=== PATIENT | female | born 1970 | race Caucasian/White ===

== ENCOUNTER 2016-07-31 13:12 | Emergency (ER) | payer OTHER ==
[~2016-07-31] VITALS: Ht 157.5 cm; Wt 78.1 kg
[~2016-07-31 13:12] MED LIST: CALC500T19 PO; HYOS0.1251 PO; LORA10TA PO; LOSA50TA PO; NEXI40CA PO; NOVOLOGSS SQ; RANI150 PO; SUCR1S PO; SYNT50TA PO; TAB-TAB PO; TRAZ50TA4 PO
[2016-07-31 13:50] VITALS: BP 157/90; PULSE 76; RESP 16; TEMP 98.8; O2SAT 99
[2016-07-31 14:35] VITALS: BP 133/69; PULSE 70; RESP 18; O2SAT 98
[2016-07-31] MEDS ORDERED: TRAZ50TA12 PO (14:46)
[2016-07-31] MEDS ORDERED: NOVOLOGP2 SQ (14:46)
[2016-07-31] MEDS ORDERED: NEXI40CA PO (14:46)
[2016-07-31] MEDS ORDERED: LEVO.075 PO (14:46)
[2016-07-31] MEDS ORDERED: HYOS0.128 PO (14:46)
[2016-07-31 15:05] VITALS: O2SAT 99
[2016-07-31 15:14] LABS: AUTOMATED NEUTROPHIL # 4.7 TH/MM3 (1.8-7.7); BASOPHIL # 0.1 TH/MM3 (0-0.2); BASOPHIL % 0.9 % (0.0-2.0); EOSINOPHIL % 0.5 % (0.0-4.0); HEMATOCRIT 42.8 % (35.0-46.0); HEMO FLAGS DIFF FINAL; LYMPHOCYTE # 2.1 TH/MM3 (1.0-4.8); MEAN CORPUSCULAR HEMOGLOBIN 28.8 PG (27.0-34.0); MEAN CORPUSCULAR HGB CONC 32.4 % (32.0-36.0); NEUT % 63.6 % (16.0-70.0); PLATELET COUNT 258 TH/MM3 (150-450); RED BLOOD COUNT 4.82 MIL/MM3 (4.00-5.30); RED CELL DISTRIBUTION WIDTH 12.1 % (11.6-17.2); WHITE BLOOD COUNT 7.3 TH/MM3 (4.0-11.0)
[2016-07-31 15:25] LABS: CHLORIDE 106 MEQ/L (98-107); POTASSIUM 3.6 MEQ/L (3.5-5.1); SODIUM (NA) 143 MEQ/L (136-145)
[2016-07-31 15:29] LABS: ANION GAP 8 MEQ/L (5-15); BICARBONATE 29.2 MEQ/L (21.0-32.0); BLOOD UREA NITROGEN 7 MG/DL (7-18)
[2016-07-31 15:32] LABS: ALT (GPT) 23 U/L (10-53); AST (GOT) 16 U/L (15-37); GLOMERULAR FILTRATION RATE 110 ML/MIN (>89)
[2016-07-31 15:34] LABS: TOTAL BILIRUBIN ADULT 0.5 MG/DL (0.2-1.0)
--- NOTE | 2016-07-31 15:34 | PD ---
HPI Chief Complaint: Abdominal Pain Time Seen by Provider: 15:15 Travel History International Travel<30 days: No Contact w/Intl Traveler<30days: No Traveled to known affect area: No History of Present Illness HPI 46yo F with PMH of gastric bypass surgery, hysterectomy, IDDM with insulin pump presents to the ED with c/o abdominal pain. Pain is intermittent and located in RUQ but became constant since last night. Feels that pain is moving to epigastric region now. Intermittent chills at home. Denies any current nausea , vomiting, urinary complaints, vaginal bleeding and discharge. Pt has history of gastric ulcer and had recent endoscopy and colonoscopy. PFSH Past Medical History Anemia: Yes Autoimmune Disease: Yes (lupus) Blood Disorders: No Cancer: No Cardiovascular Problems: No Cerebrovascular Accident: No Diabetes: Yes (TYPE I) Patient Takes Glucophage: No Diminished Hearing: No Endocrine: Yes Gastrointestinal Disorders: Yes (HIATAL HERNIA, STRICTURES) Genitourinary: Yes Headaches: No Immune Disorder: Yes (LUPUS) Kidney Stones: Yes Musculoskeletal: No Neurologic: Yes (SEIZURE IN 1999 X1) Psychiatric: No Reproductive: No Respiratory: No Immunizations Current: Yes Migraines: No Seizures: Yes (2000) Thyroid Disease: Yes Tetanus Vaccination: < 5 Years Influenza Vaccination: Yes ?: Not : 6 Para: 2 Miscarriage: 4 Dilation and Curettage (D&C): Yes (X2) Past Surgical History Abdominal Surgery: Yes (GASTRIC BYPASS HIATAL HERNIA) Body Medical Devices: INSULIN PUMP Cardiac Surgery: No Section: Yes (X2) Ear Surgery: No Endocrine Surgery: No Eye Surgery: No Gynecologic Surgery: Yes (D&C X2) Hysterectomy: Yes Oral Surgery: No Pacemaker: No Thoracic Surgery: No Other Surgery: Yes (GASTRIC BYPASS, ENDOSCOPIES) Social History Alcohol Use: Yes (1/2 BOTTLE WINE DLY) Tobacco Use: No (SOME IN COLLEGE) Substance Use: No Allergies-Medications (Allergen,Severity, Reaction): Coded Allergies: No Known Allergies (Unverified , 07/31/16) Reported Meds & Prescriptions Reported Meds & Active Scripts Active Reported Trazodone (Trazodone HCl) 50 Mg Tab 50 Mg PO HS Synthroid (Levothyroxine Sodium) 75 Mcg Tab 75 Mcg PO DAILY Novolog Inj (Insulin Aspart) 1,000 Unit/10 Ml Vial 0 SQ DIRECTED Sliding Scale as directed. Hyoscyamine (Hyoscyamine Sulfate) 0.125 Mg Tab 0.125 Mg PO Q6H Nexium (Esomeprazole DR) 40 Mg Capdr 40 Mg PO BID Review of Systems Except as stated in HPI: all other systems reviewed are Neg Physical Exam Narrative GENERAL: 46yo F not in distress. SKIN: Warm and dry. HEAD: Atraumatic. Normocephalic. EYES: Pupils equal and round. No scleral icterus. No injection or drainage. ENT: No nasal bleeding or discharge. Mucous membranes pink and moist. NECK: Trachea midline. No JVD. CARDIOVASCULAR: Regular rate and rhythm. No murmur appreciated. RESPIRATORY: No accessory muscle use. Clear to auscultation. Breath sounds equal bilaterally. GASTROINTESTINAL: Abdomen soft, +TTP epigastric and RUQ. +Clairfield sign. No rebound tenderness or guarding. MUSCULOSKELETAL: No obvious deformities. No clubbing. No cyanosis. No edema. NEUROLOGICAL: Awake and alert. No obvious cranial nerve deficits. Motor grossly within normal limits. Normal speech. PSYCHIATRIC: Appropriate mood and affect; insight and judgment normal. Data Data Last Documented VS Vital Signs Date Time Temp Pulse Resp B/P Pulse Ox O2 Delivery O2 Flow Rate FiO2 07/31/16 16:34 66 18 144/86 99 Room Air 07/31/16 13:50 98.8 Orders Complete Blood Count With Diff (07/31/16 15:04) Comprehensive Metabolic Panel (07/31/16 15:04) Urinalysis - C+S If Indicated (07/31/16 15:04) Iv Access Insert/Monitor (07/31/16 15:04) Oxygen Administration (07/31/16 15:04) Oximetry (07/31/16 15:04) Lipase (07/31/16 15:04) Us Abdomen Gallbladder (07/31/16 ) Electrocardiogram (07/31/16 ) Ketorolac Inj (Toradol Inj) (07/31/16 15:45) Urine Culture (07/31/16 14:55) Labs Laboratory Tests Test 07/31/16 07/31/16 14:55 14:58 Urine Collection Type CLEAN CATCH Urine Color YELLOW Urine Turbidity CLEAR Urine pH 6.0 Urine Specific [place] 1.023 Urine Protein TRACE mg/dL Urine Glucose (UA) NEG mg/dL Urine Ketones TRACE mg/dL Urine Occult Blood NEG Urine Nitrite NEG Urine Bilirubin NEG Urine Leukocyte Esterase NEG Urine WBC 0-2 /hpf Urine Squamous Epithelial > 8 /hpf Cells Urine Bacteria MOD /hpf Microscopic Urinalysis Comment CULTURE INDICATED Urine Collection Time 14:55 White Blood Count 7.3 TH/MM3 Red Blood Count 4.82 MIL/MM3 Hemoglobin 13.9 GM/DL Hematocrit 42.8 % Mean Corpuscular Volume 89.0 FL Mean Corpuscular Hemoglobin 28.8 PG Mean Corpuscular Hemoglobin 32.4 % Concent Red Cell Distribution Width 12.1 % Platelet Count 258 TH/MM3 Mean Platelet Volume 8.4 FL Neutrophils (%) (Auto) 63.6 % Lymphocytes (%) (Auto) 29.0 % Monocytes (%) (Auto) 6.0 % Eosinophils (%) (Auto) 0.5 % Basophils (%) (Auto) 0.9 % Neutrophils # (Auto) 4.7 TH/MM3 Lymphocytes # (Auto) 2.1 TH/MM3 Monocytes # (Auto) 0.4 TH/MM3 Eosinophils # (Auto) 0.0 TH/MM3 Basophils # (Auto) 0.1 TH/MM3 CBC Comment DIFF FINAL Differential Comment Sodium Level 143 MEQ/L Potassium Level 3.6 MEQ/L Chloride Level 106 MEQ/L Carbon Dioxide Level 29.2 MEQ/L Anion Gap 8 MEQ/L Blood Urea Nitrogen 7 MG/DL Creatinine 0.59 MG/DL Estimat Glomerular Filtration 110 ML/MIN Rate Random Glucose 62 MG/DL Calcium Level 8.9 MG/DL Total Bilirubin 0.5 MG/DL Aspartate Amino Transf 16 U/L (AST/SGOT) Alanine Aminotransferase 23 U/L (ALT/SGPT) Alkaline Phosphatase 56 U/L Total Protein 7.0 GM/DL Albumin 3.5 GM/DL Lipase 54 U/L [facility] Medical Decision Making Medical Screen Exam Complete: Yes Emergency Medical Condition: Yes Interpretation(s) EKG: NSR 66bpm. Normal axis. No ST segment elevation or depression. Differential Diagnosis Cholecystitis vs. pancreatitis vs. gastritis vs. peptic ulcer disease Narrative Course 46yo F with RUQ pain for weeks but constant since last night. Pt is well appearing. Labs reviewed, no leukocytosis. LFTs negative. Lipase normal. Will obtain US gallbladder since pt has ttp RUQ. Sign out to next team to follow up UA and US. Pt given toradol 30mg IV for pain. Diagnosis Primary Impression: Abdominal pain Qualified Code: R10.11 - Right upper quadrant abdominal pain Gabriela Garcia DO Jul 31, 2016 15:34
[2016-07-31 15:35] LABS: ALKALINE PHOSPHATASE 56 U/L (45-117)
[2016-07-31 15:45] LABS: BLOOD, URINE NEG (NEG); GLUCOSE,URINE NEG (NEG); KETONE, URINE TRACE mg/dL (NEG); NITRITE,URINE NEG (NEG)
[2016-07-31] MEDS ORDERED: KETOROLAC TROMETHAMINE 30 MG/ML (IVP) VIAL IV PUSH ONE (15:45)
--- NOTE | 2016-07-31 16:20 | RADHPO ---
EXAM DATE/TIME: 07/31/2016 15:28 [facility] COMPARISON: No previous studies available for comparison. INDICATIONS : Right upper quadrant pain. MEDICAL HISTORY : Renal calculi. Diabetes mellitus type 2. Seizures. Anemia. Lupus. SURGICAL HISTORY : Hysterectomy. section. Gastric bypass. Hiatal hernia repair. D&C. ENCOUNTER: Initial ACUITY: 1 week PAIN SCORE: 4/10 LOCATION: Abdomen. MEASUREMENTS: LIVER: 15.7 cm length COMMON DUCT: 3 mm RIGHT KIDNEY: 10.9 x 4.1 x 5.1 cm FINDINGS: LIVER: Normal echotexture without focal lesion or ductal dilatation. COMMON DUCT: No intraluminal mass or stone visualized. GALLBLADDER: Contains no stones, demonstrates no wall thickening or pericholecystic fluid. PANCREAS: The visualized portions are within normal limits. RIGHT KIDNEY: No evidence of hydronephrosis, stone, or mass. CONCLUSION: Normal examination. Fran Rutherford Jr., MD on July 31, 2016 at 16:16 Board Certified Radiologist. This report was verified electronically.
[2016-07-31 16:34] VITALS: BP 144/86; PULSE 66; RESP 18; O2SAT 99
[2016-07-31 16:51] LABS: METHOD OF COLLECTION CLEAN CATCH
--- NOTE | 2016-07-31 16:51 | PD ---
Physical Exam Date Seen by Provider: Jul 31, 2016 Time Seen by Provider: 16:48 Narrative 46-year-old female has been having some right upper quadrant pain for a couple of weeks. The pain is intermittent. She does not know what triggers it doesn' t appear to be related to eating. She has had a gastric bypass and does not eat very much. He was seen by Dr. Garcia who ordered blood work and an ultrasound. The white count is normal. Liver function tests and lipase are normal. An ultrasound has been read as negative. Patient takes Prilosec on a regular basis. 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 CT was offered but her abdomen is really quite soft without masses a surgical issue here. He is stable for discharge Data Data Last Documented VS Vital Signs Date Time Temp Pulse Resp B/P Pulse Ox O2 Delivery O2 Flow Rate FiO2 07/31/16 16:34 66 18 144/86 99 Room Air 07/31/16 13:50 98.8 Orders Complete Blood Count With Diff (07/31/16 15:04) Comprehensive Metabolic Panel (07/31/16 15:04) Urinalysis - C+S If Indicated (07/31/16 15:04) Iv Access Insert/Monitor (07/31/16 15:04) Oxygen Administration (07/31/16 15:04) Oximetry (07/31/16 15:04) Lipase (07/31/16 15:04) Us Abdomen Gallbladder (07/31/16 ) Electrocardiogram (07/31/16 ) Ketorolac Inj (Toradol Inj) (07/31/16 15:45) Labs Laboratory Tests Test 07/31/16 07/31/16 14:55 14:58 Urine pH 6.0 Urine Protein TRACE mg/dL Urine Glucose (UA) NEG mg/dL Urine Ketones TRACE mg/dL Urine Occult Blood NEG Urine Nitrite NEG Urine Bilirubin NEG Urine Leukocyte Esterase NEG White Blood Count 7.3 TH/MM3 Red Blood Count 4.82 MIL/MM3 Hemoglobin 13.9 GM/DL Hematocrit 42.8 % Mean Corpuscular Volume 89.0 FL Mean Corpuscular Hemoglobin 28.8 PG Mean Corpuscular Hemoglobin 32.4 % Concent Red Cell Distribution Width 12.1 % Platelet Count 258 TH/MM3 Mean Platelet Volume 8.4 FL Neutrophils (%) (Auto) 63.6 % Lymphocytes (%) (Auto) 29.0 % Monocytes (%) (Auto) 6.0 % Eosinophils (%) (Auto) 0.5 % Basophils (%) (Auto) 0.9 % Neutrophils # (Auto) 4.7 TH/MM3 Lymphocytes # (Auto) 2.1 TH/MM3 Monocytes # (Auto) 0.4 TH/MM3 Eosinophils # (Auto) 0.0 TH/MM3 Basophils # (Auto) 0.1 TH/MM3 CBC Comment DIFF FINAL Differential Comment Sodium Level 143 MEQ/L Potassium Level 3.6 MEQ/L Chloride Level 106 MEQ/L Carbon Dioxide Level 29.2 MEQ/L Anion Gap 8 MEQ/L Blood Urea Nitrogen 7 MG/DL Creatinine 0.59 MG/DL Estimat Glomerular Filtration 110 ML/MIN Rate Random Glucose 62 MG/DL Calcium Level 8.9 MG/DL Total Bilirubin 0.5 MG/DL Aspartate Amino Transf 16 U/L (AST/SGOT) Alanine Aminotransferase 23 U/L (ALT/SGPT) Alkaline Phosphatase 56 U/L Total Protein 7.0 GM/DL Albumin 3.5 GM/DL Lipase 54 U/L [facility] Medical Record Reviewed: Yes Supervised Visit with CAMMY: No Differential Diagnosis Differential includes cholelithiasis, cholecystitis, gastritis, Narrative Course Ultrasound is negative for biliary disease. White count is normal. Patient is stable for this patient Diagnosis Primary Impression: Abdominal pain Qualified Code: R10.11 - Right upper quadrant abdominal pain Additional Instruction: Follow-up with your own medical doctor, return if increasing pain Disposition: 01 DISCHARGE HOME Condition: Stable Severino Mackey MD Jul 31, 2016 16:51
[2016-07-31 16:52] LABS: BACTERIA, URINE MOD /hpf; COMMENT (UR) CULTURE INDICATED; CULTURE IF INDICATED CULTURE INDICATED; SQUAMOUS EPITHELIAL CELL URINE > 8 /hpf (0-5); URINE COLOR YELLOW (YELLW/STRAW); WBC, URINE 0-2 /hpf (0-5)
--- NOTE | 2016-08-01 17:23 | EKG ---
Date Performed: 07/31/2016 Time Performed: 15:55:06 PTAGE: 46 years EKG: Sinus rhythm Normal ECG NO PREVIOUS TRACING DOCTOR: Lucretia Macedo Interpretating Date/Time 08/01/2016 17:17:03
== END 2016-07-31 17:21 | disposition home or self-care (01) ==
LOC: PHED 13:12
DX: R10.11 Right upper quadrant pain (principal); D64.9 Anemia, unspecified; E10.9 Type 1 diabetes mellitus without complications; F10.10 Alcohol abuse, uncomplicated
CPT/HCPCS: 76705; 80053; 81001; 83690; 85025; 87086; 93005; 96374; 99284; J1885

== ENCOUNTER 2017-01-18 14:39 | Emergency (ER) | payer OTHER ==
[~2017-01-18] VITALS: Ht 157.5 cm; Wt 79.0 kg
[~2017-01-18 14:39] MED LIST changes: -CALC500T19 PO; -HYOS0.1251 PO; +HYOS0.128 PO; +LEVO.075 PO; -LORA10TA PO; -LOSA50TA PO; +NOVOLOGP2 SQ; -NOVOLOGSS SQ; -RANI150 PO; -SUCR1S PO; -SYNT50TA PO; -TAB-TAB PO; +TRAZ50TA12 PO; -TRAZ50TA4 PO
[2017-01-18 14:42] VITALS: BP 123/63; PULSE 76; RESP 16; TEMP 98.3; O2SAT 98
--- NOTE | 2017-01-18 15:00 | PD ---
HPI Chief Complaint: Injury Time Seen by Provider: 14:55 Travel History International Travel<30 days: No Contact w/Intl Traveler<30days: No Traveled to known affect area: No History of Present Illness HPI 46-year-old female presents to the emergency room for evaluation of left-sided chest pain the past 2 weeks after mechanical fall. Patient tripped in her garage and fell chest first onto a table. Patient states the impact was greatest on top of her insulin pump which was directly over her left breast. Since then she has had worsening pain that radiates into her left axilla. Pain occurs with deep inspiration, singing, or any range of motion of the left upper extremity. She has not taken anything for pain. She cannot take NSAIDs because she had gastric bypass surgery and Tylenol does not help. PFSH Past Medical History Anemia: Yes Autoimmune Disease: Yes (lupus) Blood Disorders: No Cancer: No Cardiovascular Problems: No Cerebrovascular Accident: No Diabetes: Yes (TYPE I) Patient Takes Glucophage: No Diminished Hearing: No Endocrine: Yes Gastrointestinal Disorders: Yes (HIATAL HERNIA, STRICTURES) Genitourinary: Yes Headaches: No Immune Disorder: Yes (LUPUS) Kidney Stones: Yes Musculoskeletal: No Neurologic: Yes (SEIZURE IN 1999 X1) Psychiatric: No Reproductive: No Respiratory: No Immunizations Current: Yes Migraines: No Seizures: Yes (1999) Thyroid Disease: Yes Tetanus Vaccination: < 5 Years Influenza Vaccination: Yes ?: Not : 6 Para: 2 Miscarriage: 4 Dilation and Curettage (D&C): Yes (X2) Past Surgical History Abdominal Surgery: Yes (GASTRIC BYPASS HIATAL HERNIA) Body Medical Devices: INSULIN PUMP Cardiac Surgery: No Section: Yes (X2) Ear Surgery: No Endocrine Surgery: No Eye Surgery: No Gynecologic Surgery: Yes (D&C X2) Hysterectomy: Yes Oral Surgery: No Pacemaker: No Thoracic Surgery: No Other Surgery: Yes (GASTRIC BYPASS, ENDOSCOPIES) Social History Alcohol Use: Yes (1/2 BOTTLE WINE DLY) Tobacco Use: No (SOME IN COLLEGE) Substance Use: No Allergies-Medications (Allergen,Severity, Reaction): Coded Allergies: No Known Allergies (Unverified , 01/18/17) Reported Meds & Prescriptions Reported Meds & Active Scripts Active Reported Trazodone (Trazodone HCl) 50 Mg Tab 50 Mg PO HS Synthroid (Levothyroxine Sodium) 75 Mcg Tab 75 Mcg PO DAILY Novolog Inj (Insulin Aspart) 1,000 Unit/10 Ml Vial 0 SQ DIRECTED Sliding Scale as directed. Hyoscyamine (Hyoscyamine Sulfate) 0.125 Mg Tab 0.125 Mg PO Q6H Nexium (Esomeprazole DR) 40 Mg Capdr 40 Mg PO BID Review of Systems Except as stated in HPI: all other systems reviewed are Neg Physical Exam Narrative GENERAL: Well-nourished, well-developed female in no acute distress. Afebrile. Ambulatory. SKIN: Focused skin assessment warm/dry. No erythema or ecchymosis. HEAD: Normocephalic. EYES: No scleral icterus. No injection or drainage. NECK: Supple, trachea midline. No JVD or lymphadenopathy. CARDIOVASCULAR: Regular rate and rhythm without murmurs, gallops, or rubs. RESPIRATORY: Breath sounds equal bilaterally. No accessory muscle use. CHEST: Moderate tenderness to palpation in the left anterior rib #4. No deformity or crepitance. No retractions or use of accessory muscles. Data Data Last Documented VS Vital Signs Date Time Temp Pulse Resp B/P Pulse Ox O2 Delivery O2 Flow Rate FiO2 01/18/17 14:42 98.3 76 16 123/63 98 Orders Ribs, Uni (W/Exp Cxr-Min 3vw) (01/18/17 ) [facility] Medical Decision Making Medical Screen Exam Complete: Yes Emergency Medical Condition: Yes Medical Record Reviewed: Yes Differential Diagnosis Rib contusion, sprain, fracture, dislocation Narrative Course 46-year-old female presents to the emergency room for evaluation of left-sided chest wall pain after trip and fall 2 weeks ago. Patient has had persistent pain since then, worse with palpation, inspiration, singing, and range of motion of the left upper extremity. States it radiates into her left axilla. Physical exam reveals mild tenderness to palpation over the left anterior rib # 4. Lung sounds clear and equal bilaterally. No crepitus or obvious deformity. No increased work of breathing. No erythema or ecchymosis. Vital signs stable. X-ray of the left ribs are negative for acute abnormality. Patient discharged with short course of muscle relaxers in case muscle spasms are or worsening her pain. Told to return for worsening symptoms. She understands and agrees to plan. Diagnosis Primary Impression: Contusion of rib on left side Qualified Code: S20.212A - Contusion of rib on left side, initial encounter Referrals: Primary Care Physician Patient Instructions: General Instructions, Rib Contusion (ED) Additional Instructions: Rest and drink plenty of fluids. Take Robaxin as directed, as needed for pain. Tylenol as directed, as needed for pain. Apply ice to the affected area for 20 minutes at a time, as needed for pain and swelling. Follow-up with a primary care physician. Return to the emergency room for worsening symptoms. Disposition: 01 DISCHARGE HOME Condition: Stable Tiara Kunz Jan 18, 2017 15:00
--- NOTE | 2017-01-18 15:23 | RADRPT ---
EXAM DATE/TIME: 01/18/2017 15:04 [facility] COMPARISON: No previous studies available for comparison. INDICATIONS : Fall, left mid to upper chest wall pain MEDICAL HISTORY : Diabetes mellitus type I. SURGICAL HISTORY : None. ENCOUNTER: Initial ACUITY: 2 weeks PAIN SCORE: 10/10 LOCATION: Left chest wall FINDINGS: Multiple views of the left ribs were performed. There is no evidence of displaced fracture. No dest ructive lesions or areas of periosteal thickening are seen. Expiratory view of the chest is negative for pneumothorax. The mediastinal structures are midline. CONCLUSION: Unremarakble examination of the left ribs and chest. Chuy Oliva MD on January 18, 2017 at 15:20 Board Certified Radiologist. This report was verified electronically.
[2017-01-18] MEDS ORDERED: ROBA750T PO (15:35)
== END 2017-01-18 15:49 | disposition home or self-care (01) ==
LOC: PHEFT 14:39
DX: S20.212A Contusion of left front wall of thorax, initial encounter (principal); E10.9 Type 1 diabetes mellitus without complications; E07.9 Disorder of thyroid, unspecified; W01.190A Fall on same level from slipping, tripping and stumbling with subsequent striking against furniture, initial encounter; Y92.015 Private garage of single-family (private) house as the place of occurrence of the external cause; Z79.4 Long term (current) use of insulin; Z98.84 Bariatric surgery status; Z86.2 Personal history of diseases of the blood and blood-forming organs and certain disorders involving the immune mechanism; Z87.19 Personal history of other diseases of the digestive system; Z87.448 Personal history of other diseases of urinary system; Z86.69 Personal history of other diseases of the nervous system and sense organs
CPT/HCPCS: 71101; 99283

== ENCOUNTER 2017-08-11 11:04 | Emergency (ER) | payer OTHER ==
[~2017-08-11] VITALS: Ht 156.2 cm; Wt 72.8 kg
[~2017-08-11 11:04] MED LIST changes: -HYOS0.128 PO; +HYOS1TAB9 PO; +ROBA750T PO
[2017-08-11 11:23] VITALS: BP 152/79; PULSE 70; RESP 14; TEMP 98.1; O2SAT 99
[2017-08-11] MEDS ORDERED: CARA1TAB6 PO (11:44)
[2017-08-11] MEDS ORDERED: PANT40TA3 PO (11:44)
--- NOTE | 2017-08-11 13:54 | PD ---
HPI Chief Complaint: Laceration/Skin Injury Time Seen by Provider: 12:26 Travel History International Travel<30 days: No Contact w/Intl Traveler<30days: No Traveled to known affect area: No History of Present Illness HPI 47-year-old female here with facial pain, headache after trip and fall from a standing position last night. She reports she was dancing and lost her balance falling forward hitting her chin on hardwood floors. She denies loss of consciousness. She sustained a small laceration to the chin. This morning she awoke with a headache and jaw pain prompting her visit. She denies visual changes. No nausea or vomiting. Symptom severity is moderate. No aggravating or alleviating factors. PFSH Past Medical History Anemia: Yes Autoimmune Disease: Yes (lupus) Blood Disorders: No Cancer: No Cardiovascular Problems: No Cerebrovascular Accident: No Diabetes: Yes (TYPE I) Patient Takes Glucophage: No Diminished Hearing: No Endocrine: Yes Gastrointestinal Disorders: Yes (HIATAL HERNIA, STRICTURES) Genitourinary: Yes Headaches: No Immune Disorder: Yes (LUPUS) Kidney Stones: Yes Musculoskeletal: No Neurologic: Yes (SEIZURE IN 1999 X1) Psychiatric: No Reproductive: No Respiratory: No Immunizations Current: Yes Migraines: No Seizures: Yes (2000) Thyroid Disease: Yes Tetanus Vaccination: < 5 Years Influenza Vaccination: Yes ?: Not : 6 Para: 2 Miscarriage: 4 Dilation and Curettage (D&C): Yes (X2) Past Surgical History Abdominal Surgery: Yes (GASTRIC BYPASS HIATAL HERNIA) Body Medical Devices: INSULIN PUMP Cardiac Surgery: No Section: Yes (X2) Ear Surgery: No Endocrine Surgery: No Eye Surgery: No Gynecologic Surgery: Yes (D&C X2) Hysterectomy: Yes Oral Surgery: No Pacemaker: No Thoracic Surgery: No Other Surgery: Yes (GASTRIC BYPASS, ENDOSCOPIES) Social History Alcohol Use: Yes (1/2 BOTTLE WINE DLY) Tobacco Use: No (SOME IN COLLEGE) Substance Use: No Allergies-Medications (Allergen,Severity, Reaction): Coded Allergies: No Known Allergies (Unverified Adverse Reaction, Unknown, 08/11/17) Reported Meds & Prescriptions Reported Meds & Active Scripts Active Reported Carafate (Sucralfate) 1 Gram Tab 1 Gm PO TID On empty stomach Pantoprazole (Pantoprazole Sodium) 40 Mg Tab 40 Mg PO BID Synthroid (Levothyroxine Sodium) 75 Mcg Tab 75 Mcg PO DAILY Novolog Inj (Insulin Aspart) 1,000 Unit/10 Ml Vial 0 SQ DIRECTED Sliding Scale as directed. Review of Systems Except as stated in HPI: all other systems reviewed are Neg General / Constitutional: No: Fever Eyes: No: Visual changes HENT: Positive: Headaches Cardiovascular: No: Chest Pain or Discomfort Respiratory: No: Shortness of Breath Gastrointestinal: No: Abdominal Pain Genitourinary: No: Dysuria Physical Exam Narrative GENERAL: Alert and well-appearing 47 old female SKIN: Warm and dry.0.5CM laceration to the chin. Bleeding is well-controlled. Wound edges well approximated. HEAD: Normocephalic. EYES: Pupils equal, round, react to light. EOMs intact. No injection or drainage. Ear/nose/throat: +TTP L mandible & across the chin. No malocclusion. Nasal bones are nontender. No septal hematoma. No oral/dental injuries. Uvula is midline. Airway is patent. NECK: Supple, trachea midline. Generalized posterior neck pain. No specific point tenderness of the spine. CARDIOVASCULAR: Regular rate and rhythm without murmurs, gallops, or rubs. No chest wall tenderness RESPIRATORY: Breath sounds equal bilaterally. No accessory muscle use. GASTROINTESTINAL: Abdomen soft, non-tender, nondistended. MUSCULOSKELETAL: No cyanosis, or edema. NEUROLOGICAL: Awake and alert. Cranial nerves II through XII intact. Motor and sensory grossly within normal limits. Five out of 5 muscle strength in all muscle groups. Normal speech. BACK: Nontender without obvious deformity. No CVA tenderness. Data Data Last Documented VS Vital Signs Date Time Temp Pulse Resp B/P (MAP) Pulse Ox O2 Delivery O2 Flow Rate FiO2 08/11/17 11:23 98.1 70 14 152/79 (103) [address] Facial Bones W/O Iv Cont (08/11/17 ) Ct Brain W/O Iv Contrast(Rout) (08/11/17 ) Ct Cerv Spine W/O Contrast (08/11/17 ) [facility] Medical Decision Making Medical Screen Exam Complete: Yes Emergency Medical Condition: Yes Differential Diagnosis Mandible fracture, facial contusion, facial laceration, ICH, cervical strain, cervical fracture Narrative Course 47-year-old female here with laceration to the chin and mandible pain after she had a fall from a standing position yesterday. She has a normal neurologic exam. Facial laceration and 0.5 cm with no evidence of infection. Wound edges are well approximated. CT of brain: No acute findings CT cervical spine: Negative for fracture CT facial bones: Negative for fracture Findings were discussed with patient. The laceration was thoroughly cleaned and sterile dressing was applied. Given his age he cannot be sutured. Patient will be put on prophylactic antibiotics for several days. Tylenol or ibuprofen for pain. Follow-up the primary doctor. Return because his risks. Diagnosis Primary Impression: Facial laceration Qualified Codes: S01.81XA - Laceration without foreign body of other part of head, initial encounter Additional Impression: Facial contusion Qualified Codes: S00.83XA - Contusion of other part of head, initial encounter Referrals: Primary Care Physician Additional Instructions: Tylenol and ibuprofen for pain. Wash the area daily with soap and water. , With a clean dry dressing. Scripts Cephalexin (Keflex) 500 Mg Cap 500 MG PO Q6H for Infection for 5 Days, #20 CAP 0 Refills Prov: Lashell Samuel 08/11/17 Disposition: 01 DISCHARGE HOME Condition: Stable Lashell Samuel Aug 11, 2017 13:54
--- NOTE | 2017-08-11 14:00 | RADRPT ---
EXAM DATE/TIME: 08/11/2017 13:38 [facility] COMPARISON: No previous studies available for comparison. INDICATIONS : Trauma. Fall. Chin laceration. RADIATION DOSE: 58.25 CTDIvol (mGy) MEDICAL HISTORY : Seizures. Hernia, hiatal. Renal calculi.Hypertension. SURGICAL HISTORY : Gastric bypass. Hysterectomy. ENCOUNTER: Initial ACUITY: 1 day PAIN SCALE: 5/10 LOCATION: cranial TECHNIQUE: Multiple contiguous axial images were obtained of the head. Using automated exposure control and adj ustment of the mA and/or kV according to patient size, radiation dose was kept as low as reasonably a chievable to obtain optimal diagnostic quality images. DICOM format image data is available electro nically for review and comparison. FINDINGS: CEREBRUM: The ventricles are normal for age. No evidence of midline shift, mass lesion, hemorrhage or acute in farction. No extra-axial fluid collections are seen. POSTERIOR FOSSA: The cerebellum and brainstem are intact. The 4th ventricle is midline. The cerebellopontine angle i s unremarkable. EXTRACRANIAL: The visualized portion of the orbits is intact. SKULL: The calvaria is intact. No evidence of skull fracture. CONCLUSION: Normal examination for a patient of this age. Kenn Quinn MD on August 11, 2017 at 13:57 Board Certified Radiologist. This report was verified electronically.
--- NOTE | 2017-08-11 14:01 | RADRPT ---
EXAM DATE/TIME: 08/11/2017 13:38 [facility] COMPARISON: No previous studies available for comparison. INDICATIONS : Trauma. Fall. Chin laceration. RADIATION DOSE: 25.26 CTDIvol (mGy) MEDICAL HISTORY : Seizures. Hernia, hiatal. Renal calculi. SURGICAL HISTORY : Gastric bypass. Hysterectomy. ENCOUNTER: Initial ACUITY: 1 day PAIN SCORE: 7/10 LOCATION: facial TECHNIQUE: Volumetric scanning of the facial bones was performed. Using automated exposure control and adjustme nt of the mA and/or kV according to patient size, radiation dose was kept as low as reasonably achiev able to obtain optimal diagnostic quality images. DICOM format image data is available electronicall y for review and comparison. FINDINGS: ORBITS: The orbital and infraorbital osseous structures are intact. The retroconal structures have a normal configuration. No radiopaque foreign bodies are seen. NASAL BONE: The nasal bone and maxillary spine are intact ZYGOMATIC ARCHES: Symmetric without evidence of fracture. SINUSES: The maxillary, ethmoid and frontal sinuses are intact. No air-fluid levels seen. NASAL CAVITY: The nasal septum is intact and midline. The lacrimal ducts are intact. SOFT TISSUES: No radiopaque foreign bodies seen. No soft-tissue swelling is seen. INTRACRANIAL: No intracranial air seen. CRIBIFORM PLATE: Grossly intact. CONCLUSION: Normal examination for a patient of this age. Kenn Quinn MD on August 11, 2017 at 13:58 Board Certified Radiologist. This report was verified electronically.
--- NOTE | 2017-08-11 14:07 | RADRPT ---
EXAM DATE/TIME: 08/11/2017 13:38 [facility] COMPARISON: No previous studies available for comparison. INDICATIONS : Trauma. Fall. Chin laceration. RADIATION DOSE: 26.52 CTDIvol (mGy) MEDICAL HISTORY : Seizures. Hernia, hiatal. Renal calculi.Diabetes. SURGICAL HISTORY : Gastric bypass. Hysterectomy. ENCOUNTER: Initial ACUITY: 1 day PAIN SCALE: 5/10 LOCATION: neck TECHNIQUE: Volumetric scanning of the cervical spine was performed. Multiplanar reconstructions in the sagittal, coronal and oblique axial planes were performed. Using automated exposure control and adjustment o f the mA and/or kV according to patient size, radiation dose was kept as low as reasonably achievable to obtain optimal diagnostic quality images. DICOM format image data is available electronically f or review and comparison. FINDINGS: VERTEBRAE: Normal vertebral body height. No acute bony fracture. ALIGNMENT: No evidence of subluxation. C2-C3: The bony spinal canal is normal in size. No evidence of disc bulge or herniation. The neural forami na are bilaterally patent. C3-C4: Small focal central disc bulge with disc osteophyte complex. Neural foramina are patent bilaterally. C4-C5: The bony spinal canal is normal in size. No evidence of disc bulge or herniation. The neural forami na are bilaterally patent. C5-C6: The bony spinal canal is normal in size. No evidence of disc bulge or herniation. The neural forami na are bilaterally patent. C6-C7: The bony spinal canal is normal in size. No evidence of disc bulge or herniation. The neural forami na are bilaterally patent. C7-T1: The bony spinal canal is normal in size. No evidence of disc bulge or herniation. The neural forami na are bilaterally patent. CONCLUSION: 1. No acute bony fractures. 2. Focal small central disc bulge with disc osteophyte complex at C3-4. Kenn Quinn MD on August 11, 2017 at 14:04 Board Certified Radiologist. This report was verified electronically.
[2017-08-11] MEDS ORDERED: CEPH-460 PO (14:20)
== END 2017-08-11 14:42 | disposition home or self-care (01) ==
LOC: PHEFT 11:04
DX: S01.81XA Laceration without foreign body of other part of head, initial encounter (principal); W01.0XXA Fall on same level from slipping, tripping and stumbling without subsequent striking against object, initial encounter; Y93.41 Activity, dancing; M32.9 Systemic lupus erythematosus, unspecified; E10.9 Type 1 diabetes mellitus without complications; Z79.4 Long term (current) use of insulin
CPT/HCPCS: 70450; 70486; 72125; 99284

== ENCOUNTER 2017-11-18 06:36 | Emergency (ER) | payer OTHER ==
[~2017-11-18] VITALS: Ht 154.9 cm; Wt 74.2 kg
[~2017-11-18 06:36] MED LIST changes: +CARA1TAB6 PO; +CEPH-460 PO; -HYOS1TAB9 PO; -NEXI40CA PO; +PANT40TA3 PO; -ROBA750T PO; -TRAZ50TA12 PO
[2017-11-18 06:40] VITALS: BP 146/74; PULSE 71; RESP 18; TEMP 98; O2SAT 99
--- NOTE | 2017-11-18 07:03 | PD ---
HPI Chief Complaint: Right hand injury Time Seen by Provider: 06:54 Travel History International Travel<30 days: No Contact w/Intl Traveler<30days: No Traveled to known affect area: No History of Present Illness HPI This 47-year-old female says she fell and injured her right hand. This occurred last night. There was a deformity of the right fourth finger around the PIP over the middle phalanx which she reduced herself. She presents now for treatment. She is left-handed. There was no other injury from the fall. She is left-handed [facility] Past Medical History Anemia: Yes Autoimmune Disease: Yes (lupus) Blood Disorders: No Cancer: No Cardiovascular Problems: No Cerebrovascular Accident: No Diabetes: Yes (TYPE I) Diminished Hearing: No Endocrine: Yes Gastrointestinal Disorders: Yes (HIATAL HERNIA, STRICTURES) Genitourinary: Yes Headaches: No Immune Disorder: Yes (LUPUS) Kidney Stones: Yes Musculoskeletal: No Neurologic: Yes (SEIZURE IN 1999 X1) Psychiatric: No Reproductive: No Respiratory: No Immunizations Current: Yes Migraines: No Seizures: Yes (1999) Thyroid Disease: Yes : 6 Para: 2 Miscarriage: 4 Dilation and Curettage (D&C): Yes (X2) Past Surgical History Abdominal Surgery: Yes (GASTRIC BYPASS HIATAL HERNIA) Body Medical Devices: INSULIN PUMP Cardiac Surgery: No Section: Yes (X2) Ear Surgery: No Endocrine Surgery: No Eye Surgery: No Gynecologic Surgery: Yes (D&C X2) Hysterectomy: Yes Oral Surgery: No Pacemaker: No Thoracic Surgery: No Other Surgery: Yes (GASTRIC BYPASS, ENDOSCOPIES) Social History Alcohol Use: Yes (1/2 BOTTLE WINE DLY) Tobacco Use: No ([employer]) Substance Use: No Allergies-Medications (Allergen,Severity, Reaction): Coded Allergies: No Known Allergies (Unverified Adverse Reaction, Unknown, 08/11/17) Reported Meds & Prescriptions Reported Meds & Active Scripts Active Reported Humalog Inj (Insulin Human Lispro) 1,000 Unit/10 Ml Vial 17 Unit SQ ACHS Max dose at bedtime:( )units; sugars< 70,(0)units; sugars 150-199,(1)unit; sugars 200-249,(3)units; sugars 250-299,(5)units; sugars 300-349,(7)units; sugars more than 349,(9)units. Unithroid (Levothyroxine Sodium) 88 Mcg Tab 88 Mcg PO DAILY Pantoprazole (Pantoprazole Sodium) 40 Mg Tab 40 Mg PO BID Review of Systems General / Constitutional: No: Fever, Chills Eyes: No: Diploplia HENT: No: Headaches Cardiovascular: No: Chest Pain or Discomfort Gastrointestinal: No: Vomiting, Diarrhea Genitourinary: No: Urgency Musculoskeletal: Positive: Pain Hematologic/Lymphatic: No: Easy Bruising Physical Exam Narrative GENERAL: Well-developed female SKIN: Focused skin assessment warm/dry. HEAD: Atraumatic. Normocephalic. EYES: Pupils equal and round. No scleral icterus. No injection or drainage. ENT: No nasal bleeding or discharge. Mucous membranes pink and moist. NECK: Trachea midline. No JVD. MUSCULOSKELETAL: No obvious deformities. No clubbing. No cyanosis. No edema. Examining the right arm is no tenderness of the wrist. Metacarpals did not appear tender. She has swelling and ecchymosis fourth finger. She has diminished sensation of this finger as well as the ulnar side of the third finger and the radial side of the fifth finger these fingers are also a little bit tender though they are not ecchymotic. She is not able to move the fourth finger possibly due to pain NEUROLOGICAL: Awake and alert. No obvious cranial nerve deficits. Motor grossly within normal limits. Normal speech. PSYCHIATRIC: Appropriate mood and affect; insight and judgment normal. Data Data Last Documented VS Vital Signs Date Time Temp Pulse Resp B/P (MAP) Pulse Ox O2 Delivery O2 Flow Rate FiO2 11/18/17 07:47 Room Air 11/18/17 06:40 98.0 71 18 146/74 (98) 99 Orders Orders Hand, Complete ([id number]) (11/18/17 06:57) Acetamin-Hydrocod 325-5 Mg ([place] 5-325 (11/18/17 08:00) Splint Or Brace Apply/Monitor (11/18/17 07:53) MDM Medical Decision Making Medical Screen Exam Complete: Yes Emergency Medical Condition: Yes Medical Record Reviewed: Yes Differential Diagnosis Differential includes fracture, dislocation, contusion Narrative Course X-ray shows a fracture of the middle phalanx. There are multiple fracture lines which are somewhat oblique. The pieces are actually in good alignment at this time but I think she is at high risk for displacement of the fragment so I am going to use an ulnar gutter splint for now. I have recommended to her that she follow-up with a hand surgeon. She says she will have to get a referral from Dr. Chowdhury.. She will be advised to keep it elevated. At this time the finger is swollen and she does have some diminished sensation which I believe is from the edema though injury to the nerve cannot be ruled out Diagnosis Primary Impression: Fracture of middle phalanx of right ring finger Additional Instructions: Keep finger elevated, apply ice, follow-up with hand surgeon Scripts Hydrocodone-Acetaminophen ([place]) 5 Mg-325 Mg Tab 1 TAB PO Q4H Y for PAIN, #12 TAB 0 Refills Prov: Severino Mackey MD 11/18/17 Disposition: 01 DISCHARGE HOME Condition: Stable Severino Mackey MD Nov 18, 2017 07:03
--- NOTE | 2017-11-18 07:29 | RADRPT ---
EXAM DATE: 11/18/2017 7:17 AM EDT AGE/SEX: 47 years / Female INDICATIONS: Right hand pain & swelling mostly the 4th digit. Patient states she fell last night & f pillo had a deformity & she reduced it herself. CLINICAL DATA: This is the patient's initial encounter. Patient reports that signs and symptoms have been present for 1 day and indicates a pain score of 6/10. MEDICAL/SURGICAL HISTORY: Diabetes mellitus type I. Lupus. Hiatal hernia. Renal calculi. Thy roid disease. Gastric bypass. section. D & C. COMPARISON: No prior exams available for comparison. FINDINGS: There is a complete fracture of the fourth middle phalanx in the midportion and there appears to be 2 separate fracture lines without any significant angulation or displacement. CONCLUSION: Fourth middle phalangeal fracture. Electronically signed by: Jeyson Araiza MD 11/18/2017 7:28 AM EDT
[2017-11-18] MEDS ORDERED: HUMALOG SQ (07:46)
[2017-11-18] MEDS ORDERED: LEVO-16 PO (07:46)
[2017-11-18] MEDS ORDERED: NORC5TAB PO (07:58)
[2017-11-18] MEDS ORDERED: ACETAMINOPHEN/HYDROcodone 325 MG/5 MG TAB PO ONE (08:00)
[2017-11-18 08:31] VITALS: BP 126/87
[2017-11-18 08:38] VITALS: RESP 16
== END 2017-11-18 08:38 | disposition home or self-care (01) ==
LOC: PHED 06:36
DX: S62.622A Displaced fracture of middle phalanx of right middle finger, initial encounter for closed fracture (principal); D64.9 Anemia, unspecified; M32.9 Systemic lupus erythematosus, unspecified; E10.9 Type 1 diabetes mellitus without complications; E07.9 Disorder of thyroid, unspecified; W19.XXXA Unspecified fall, initial encounter; Z79.4 Long term (current) use of insulin; Z87.442 Personal history of urinary calculi; Z86.69 Personal history of other diseases of the nervous system and sense organs; Z79.899 Other long term (current) drug therapy
CPT/HCPCS: 29125; 73130